=== PATIENT | male | born 1940 | race Hispanic/Latino ===

== ENCOUNTER → 2018-06-06 | Outpatient (CLI) | payer OTHER | END | disposition home or self-care (01) | LOC: SHCH 10:40 | PROVIDERS: ATTEND Internal Medicine Cardiovascular Disease | DX: I65.23 Occlusion and stenosis of bilateral carotid arteries (principal); I25.10 Atherosclerotic heart disease of native coronary artery without angina pectoris | CPT/HCPCS: 93880 ==

== ENCOUNTER 2019-08-13 05:56 | Observation (INO) | payer OTHER ==
[2019-08-11 09:17] LABS: BASOPHILS % (AUTO) 0.5 % (0.0-5.0); EOSINOPHILS % (AUTO) 2.8 % (0.0-8.0); HEMATOCRIT 45.9 % (42-54); LYMPHOCYTES % (AUTO) 20.6 % (21.0-51.0); MEAN CORPUSCULAR HEMOGLOBIN 30.8 pg (27.0-33.0); MEAN CORPUSCULAR HGB CONC 33.3 g/dL (32.0-36.0); MEAN CORPUSCULAR VOLUME 92.4 fL (79-99); MONOCYTES % (AUTO) 10.1 % (3.0-13.0); NEUTROPHILS % (AUTO) 65.6 % (40.0-77.0); PLATELET COUNT (AUTO) 201 K/uL (130-400); RED BLOOD CELL COUNT(AUTO) 4.97 MIL/uL (4.50-6.20); WHITE BLOOD COUNT (AUTO) 7.9 K/uL (4.8-10.8)
[2019-08-11 09:28] LABS: POTASSIUM 4.3 mmol/L (3.5-5.1)
[2019-08-11 09:31] LABS: INR 1.03 (0.85-1.15); PARTIAL THROMBOPLASTIN TIME 26.5 SEC (26.3-35.5); PROTHROMBIN TIME 10.8 SEC (9.6-11.6)
[2019-08-11 09:47] VITALS: BP 146/68
--- NOTE | 2019-08-11 10:24 | NUR ---
JERZY AWARE OF PROCEDURE BIOTRONIC
[2019-08-13] VITALS (9 sets, daily range): BP systolic 124–152; BP diastolic 61–87
[~2019-08-13] VITALS: Ht 177.8 cm; Wt 98.7 kg
[~2019-08-13 05:56] MED LIST: ASPI-556 PO; ATOR10TA69 PO; CARV12.511 PO; CEFAZOLIN SODIUM 1 GM VIAL IVP SCH; LISI40TA4 PO; SODIUM CHLORIDE 0.9% 1000ML 1,000 ML IV SCH
[2019-08-13] MEDS ORDERED: BUPIVACAINE/PF 0.25% 30ML VIAL IJ ONE (10:57)
[2019-08-13] MEDS ORDERED: MIDAZOLAM HCL 1 MG/ML 2ML VIAL ONE (10:57)
[2019-08-13] MEDS ORDERED: CEFAZOLIN SODIUM 1 GM VIAL ONE (10:57)
[2019-08-13] MEDS ORDERED: MEPERIDINE-PF 25 MG/ML SYG ONE (10:57)
[2019-08-13] MEDS ORDERED: LIDOCAINE HCL 1% MDV 50ML VIAL ONE (10:58)
[2019-08-13] MEDS ORDERED: ACETAMINOPHEN-CODEINE 300/30MG TAB PO PRN (12:15)
--- NOTE | 2019-08-13 12:30 | NUR ---
RECEIVED PATIENT FROM STRUCTURAL ENGINEERING TECHNICIAN S/P PACEMAKER PLACEMENT. LEFT SLING IN PLACE. 2 DRESSINGS ON LEFT PECTORAL WITH MINIMAL SANGUENOUS DRAINAGE ON NON-ADHERENT DRESSING. PATIENT IS AWARE THAT HE NEEDS TO BE ON BEDREST FOR 4 HOURS. VITAL SIGNS TO BE MONITORED. CALL LIGHT WITHIN REACH.
--- NOTE | 2019-08-13 15:20 | NUR ---
REPORTED INCREASED BLOOD STAIN ON PPM DRESSING. APPLIED PRESSURE DRESSING TO SITE. ICE PACKS APPLIED WELL. SLING IN PLACE. WILL CONTINUE TO MONITOR.
--- NOTE | 2019-08-13 18:30 | NUR ---
DR. NEVAREZ CALLED BACK AND IS AWARE OF PATIENT'S ADMISSION.
--- NOTE | 2019-08-13 20:00 | NUR ---
PT STATES MINIMAL PAIN TO PPM SITE, OFFERED PAIN MEDS, AND DECLINED.
[2019-08-13] MEDS ORDERED: ASPIRIN 81 MG EC TAB PO SCH (21:00)
[2019-08-13] MEDS ORDERED: ATORVASTATIN CALCIUM 10 MG TABLET PO SCH (21:00)
[2019-08-13] MEDS ORDERED: CARVEDILOL 6.25 MG TABLET PO SCH (21:00)
--- NOTE | 2019-08-14 | NUR ---
PT HAS NO COMPLAINTS AT THIS TIME. NO PAIN TO SITE. ABLE TO SIT UP IN BED WITH ASSIST. NO DISTRESS NOTED. PRESSURE DRESSING IN PLACE.
[2019-08-14 00:02] VITALS: BP 147/75
--- NOTE | 2019-08-14 07:35 | NUR ---
ASSESSMENT ENCOUNTERED PT SITTING UP IN CHAIR, A&OX3, CALM COOPERATIVE AND DOES NOT APPEAR TO BE IN ANY DISTRESS NOR ANY NEURO DEFICITS PRESENT, PT DENIES PAIN, SOB, NAUSEA. LEFT SHOULDER DRESSING DRY, INTACT AND SECURED WITH ARM SLING.PT IS AMBULATORY, GAIT STEADY AND STRONG WITH STAND BY ASSIST. CALL LIGHT WITHIN REACH, FAMILY AT BEDSIDE.
[2019-08-14 07:54] VITALS: BP 135/68
[2019-08-14] MEDS ORDERED: LISINOPRIL 40 MG TABLET PO SCH (09:00)
[2019-08-14] MEDS ORDERED: CARVEDILOL 12.5 MG TABLET PO SCH (09:00)
[2019-08-14 09:51] VITALS: BP 135/68
--- NOTE | 2019-08-14 12:00 | NUR ---
DISCHARGE INSTRUCTIONS GIVEN, PIV REMOVED AND INTACT, DISCHARGED HOME TO FAMILY VEHICLE VIA WHEELCHAIR.
--- NOTE | 2019-08-14 16:19 | NUR ---
[id number] patient signed BRUNNER Letter, I faxed BRUNNER Letter to [id number] and placed in chart under consent tab
== END 2019-08-14 13:05 | disposition home or self-care (01) ==
LOC: DAH 05:56 → DAHIP 05:57 → 2DH 13:34
PROVIDERS: ADMIT Internal Medicine; ATTEND Internal Medicine
DX: I49.5 Sick sinus syndrome (principal); R55 Syncope and collapse; I48.0 Paroxysmal atrial fibrillation; I25.10 Atherosclerotic heart disease of native coronary artery without angina pectoris; E78.5 Hyperlipidemia, unspecified; I25.2 Old myocardial infarction; Z95.1 Presence of aortocoronary bypass graft
CPT/HCPCS: 33208; 33286; 36415; 71045; 80048; 85025; 85610; 85730; 93005; A4215; A4216; A4221; A4222; A4223 ×3; A4606; A4649; A4663; C1785; C1898 ×2; G0378 ×20; J0690; J2175; J2250; J3490 ×2; J7030; 99156; 99157